=== PATIENT | female | born 1990 | race Caucasian/White ===

== ENCOUNTER 2021-05-21 14:34 | Emergency (ER) | payer MEDICAID ==
[~2021-05-21] VITALS: Ht 167.6 cm; Wt 81.6 kg
--- NOTE | 2021-05-21 14:44 | NUR ---
Patient triaged and placed in waiting room. VSS and patient appears in no acute distress at this time. Accompanied by self , awaiting available bed, and MD notified of need for MSE.
--- NOTE | 2021-05-21 14:45 | NUR ---
Pt presents to ER with tailbone pain after falling few days ago,ambulatory, skin pink and warm, cap refill <3, VSS, respirations even and unlabored.
[2021-05-21 14:53] VITALS: BP_SYST 142
--- NOTE | 2021-05-21 20:05 | NUR ---
Dr Allison evaluating patient in the triage room
[2021-05-21 21:09] VITALS: BP_SYST 142
--- NOTE | 2021-05-21 21:09 | NUR ---
Patient given written and verbal discharge instructions and verbalizes understanding. ER MD discussed with patient the results and treatment provided. Patient in stable condition. ID arm band removed. Rx of Hydrocodone given. Patient educated on pain management and to follow up with PMD. Pain Scale 3/10. Opportunity for questions provided and answered. Medication side effect fact sheet provided.
== END 2021-05-21 21:09 | disposition home or self-care (01) ==
LOC: SED 14:34
DX: S33.8XXA Sprain of other parts of lumbar spine and pelvis, initial encounter (principal); W01.0XXA Fall on same level from slipping, tripping and stumbling without subsequent striking against object, initial encounter; Y93.89 Activity, other specified; Y92.89 Other specified places as the place of occurrence of the external cause; Y99.8 Other external cause status
CPT/HCPCS: 72220-TC; 99283